=== PATIENT | male | born 1965 | race Caucasian/White ===

== ENCOUNTER 2016-12-24 16:58 | Observation (INO) | payer SELFPAY ==
[~2016-12-24] VITALS: Ht 180.3 cm; Wt 90.8 kg
[~2016-12-24 16:58] MED LIST: AMBIEN 10MG10 MG PO; DESYREL 100MG100 MG PO; FENTANYL 50MCG TD; FLEXERIL 1010 MG/TAB PO; NORCO 325 MG-7.1 TAB PO; ZOLOFT 100MG100 MG PO
[2016-12-24] MEDS ORDERED: PROZAC 20MG20 MG PO (17:09)
[2016-12-24] MEDS ORDERED: [UNRECOGNIZED DRUG - CODE] PO (17:10)
[2016-12-24] MEDS ORDERED: ATARAX 25MG25 MG/TAB PO (17:10)
[2016-12-24 17:52] LABS: BASO # 0.1 (0.0-0.2); BASO % 0.8 % (0.0-2.0); EOS # 0.1 (0.0-0.7); EOS % 0.9 % (0-4.0); GRAN # 6.4 (1.4-6.5); GRAN % 64.9 % (42.2-75.2); HEMATOCRIT 44.5 % (42.0-52.0); HEMOGLOBIN 16.2 g/dl (13.5-18.0); LYMPH # 2.5 (1.2-3.4); LYMPH % 24.7 % (20.0-51.0); MEAN CELL VOLUME 92 fl (80.0-100.0); MEAN CORPUSCULAR HEMOGLOBIN 34 pg (27.0-31.0); MEAN CORPUSCULAR HGB CONC 36 g/dl (33.0-37.0); MEAN PLATELET VOLUME 9.1 fl (7.4-10.4); MONO # 0.8 (0.1-0.6); PLATELET COUNT 292 K/mm3 (130-400); RED BLOOD COUNT 4.82 M/mm3 (4.20-5.60); REDCELL DISTRIBUTION WIDTH-CV 13.9 % (11.5-14.5); WHITE BLOOD COUNT 9.9 K/mm3 (4.8-10.8)
[2016-12-24 18:03] LABS: ADJUSTED CALCIUM 8.8 mg/dL (8.4-10.2); ALANINE AMINOTRANSFERASE 27 U/L (21-72); ALBUMIN 4.3 gm/dL (3.5-5.0); ALKALINE PHOSPHATASE 71 U/L (50-136); ANION GAP 12 mmol/L (7-16); BILIRUBIN,TOTAL 0.8 mg/dL (0.0-1.0); BLOOD UREA NITROGEN 8 mg/dL (9-20); CARBON DIOXIDE 22 mmol/L (22-30); CHLORIDE 106 mmol/L (98-107); CREATININE, serum 0.83 mg/dL (0.66-1.25); GLUCOSE 91 mg/dL (74-106); POTASSIUM 3.5 mmol/L (3.4-5.0); SODIUM 141 mmol/L (137-145); TOTAL PROTEIN 7.3 gm/dL (6.4-8.2)
[2016-12-24 18:10] LABS: ACETAMINOPHEN < 10 ug/mL (10-30); SALICYLATE < 1.0 mg/dL
[2016-12-24 18:16] LABS: TROPONIN-I < 0.012 ng/mL (0.000-0.034)
[2016-12-24 18:24] LABS: PH 5 (5-8); SQUAMOUS EPITHELIAL None Seen /hpf; URINE APPEARANCE Clear; URINE BACTERIA None Seen /hpf; URINE BILIRUBIN Negative (NEGATIVE); URINE BLOOD Negative (NEGATIVE); URINE COLOR Yellow; URINE GLUCOSE Negative (NEGATIVE); URINE KETONE Negative (NEGATIVE); URINE RBC 0-2 /hpf; URINE UROBILINOGEN Negative (NEGATIVE); URINE WBC 0-2 /hpf
[2016-12-24 18:30] LABS: AMPHETAMINE URINE NEGATIVE; BARBITURATES URINE NEGATIVE; BENZODIAZEPINES URINE POSITIVE; BUPRENORPHINE URINE NEGATIVE; METHADONE URINE NEGATIVE; OPIATES URINE NEGATIVE; OXYCODONE URINE NEGATIVE; PHENCYCLIDINE URINE NEGATIVE; PROPOXYPHENE URINE NEGATIVE; THC CANNABINOIDS URINE NEGATIVE
[2016-12-25] VITALS (726 sets, daily range): BP systolic 113–152; BP diastolic 78–107; PULSE 82–98; TEMP 98; O2SAT 87–100
== END 2016-12-25 15:15 ==
LOC: COL.ER 16:58 → ICU 12-25 01:07
PROVIDERS: Nurse Practitioner
DX: F33.8 Other recurrent depressive disorders (principal); F51.04 Psychophysiologic insomnia; I10 Essential (primary) hypertension; I25.10 Atherosclerotic heart disease of native coronary artery without angina pectoris; Z95.818 Presence of other cardiac implants and grafts
CPT/HCPCS: G0378

== ENCOUNTER 2020-03-30 10:52 | Day surgery (SDC) | payer BC ==
[~2020-03-30] VITALS: Ht 177.8 cm; Wt 94.2 kg
[~2020-03-30 10:52] MED LIST changes: +ATARAX 25MG25 MG/TAB PO; +PROZAC 20MG20 MG PO; +[UNRECOGNIZED DRUG - CODE] PO
[2020-03-30] MEDS ORDERED: MICROZIDE12.5 MG PO (11:27)
[2020-03-30] MEDS ORDERED: PERCOCET 325 MG1 TAB PO ×2 (11:27→14:29)
[2020-03-30] MEDS ORDERED: SONATA 10MG10 MG PO (11:27)
[2020-03-30 11:28] VITALS: BP 157/103; PULSE 67; TEMP 97.5
[2020-03-30] MEDS ORDERED: MOTRIN 600600 MG/TAB PO (14:30)
[2020-03-30 15:30] VITALS: BP 165/90; PULSE 88; TEMP 97.8
--- NOTE | 2020-03-30 15:30 | NUR ---
Patient arrives to [facility] [place] [facility] [place], accompanied by SAILMAKER Lindsay. He is sitting up in bed, alert and oriented. He states his pain is controlled, rating it a 3/10. He has 3 surgical sites on his abdomen that are clean, dry, glue intact. PIV is to TKO. He denies nausea. He has ice chips. Monitoring is applied and VSS on room air. He has HTN and his BP is within parameters from pre-op BP. He states he needs to void. He ambulates to the restroom with staff assist. He voids a large amount of clear/yellow urine and returns to room with steady gait.
[2020-03-30 15:45] VITALS: BP 155/83; PULSE 87
--- NOTE | 2020-03-30 15:45 | NUR ---
Patient is resting comfortably in room. He is offered and receives sprite and crackers.
[2020-03-30 16:00] VITALS: BP 157/86; PULSE 89
--- NOTE | 2020-03-30 16:00 | NUR ---
Patient is resting comfortably. Tolerating PO well. Denies pain or nausea.
--- NOTE | 2020-03-30 16:15 | NUR ---
Patient has met discharge criteria and states he would like to go home. He calls his daughter and she is available to head towards the hospital for transportation. PIV is removed with catheter intact and hemostasis achieved. Discharge instructions are discussed with the patient. He verbalizes understanding and denies questions. He is aware of his prescriptions to leaf size picker at [facility] (percocet and motrin). He is given an appointment reminder for his follow-up appointment. He ambulates to the restroom again with steady gait, returns to room, and changes to his clothing independently.
--- NOTE | 2020-03-30 17:11 | NUR ---
Patient's daughter has arrived to pick him up. He is escorted to the exit via wheelchair and discharged to home at 1711.
== END 2020-03-30 17:11 | disposition home or self-care (01) ==
LOC: SDCO 10:52
DX: K40.90 Unilateral inguinal hernia, without obstruction or gangrene, not specified as recurrent (principal); D17.6 Benign lipomatous neoplasm of spermatic cord; I10 Essential (primary) hypertension; Z20.822 Contact with and (suspected) exposure to COVID-19; Z79.899 Other long term (current) drug therapy
CPT/HCPCS: C1781; J0360; J0690; J1100; J1170; J1885; J2405; J2550; J2704; J3010; J7120

== ENCOUNTER → 2020-06-12 | Outpatient (CLI) | payer SELFPAY ==
[~2020-06-12] MED LIST changes: +MICROZIDE12.5 MG PO; +MOTRIN 600600 MG/TAB PO; +PERCOCET 325 MG1 TAB PO; +SONATA 10MG10 MG PO
== END ==
LOC: MHCPAIN 08:51
DX: M47.817 Spondylosis without myelopathy or radiculopathy, lumbosacral region (principal); M53.3 Sacrococcygeal disorders, not elsewhere classified; G89.29 Other chronic pain; F11.20 Opioid dependence, uncomplicated
CPT/HCPCS: G0463

== ENCOUNTER → 2020-07-24 | Outpatient (CLI) | payer OTHER | LOC: MHCPAIN 08:31 | DX: M47.817 Spondylosis without myelopathy or radiculopathy, lumbosacral region (principal); M53.3 Sacrococcygeal disorders, not elsewhere classified; G89.29 Other chronic pain | CPT/HCPCS: G0463 ==

== ENCOUNTER → 2020-08-22 | Outpatient (CLI) | payer OTHER | LOC: MHCPAIN 07:46 | DX: M47.817 Spondylosis without myelopathy or radiculopathy, lumbosacral region (principal); M53.3 Sacrococcygeal disorders, not elsewhere classified; G89.29 Other chronic pain | CPT/HCPCS: G0463 ==

== ENCOUNTER → 2020-09-25 | Outpatient (CLI) | payer OTHER | LOC: MHCPAIN 07:47 | DX: M47.817 Spondylosis without myelopathy or radiculopathy, lumbosacral region (principal); M54.5 Low back pain; M53.3 Sacrococcygeal disorders, not elsewhere classified | CPT/HCPCS: G0463 ==

== ENCOUNTER → 2020-10-30 | Outpatient (CLI) | payer OTHER | LOC: MHCPAIN 07:46 | DX: M47.817 Spondylosis without myelopathy or radiculopathy, lumbosacral region (principal); M54.5 Low back pain; M53.3 Sacrococcygeal disorders, not elsewhere classified | CPT/HCPCS: G0463 ==

== ENCOUNTER → 2020-11-27 | Outpatient (CLI) | payer OTHER | LOC: MHCPAIN 07:43 | DX: M47.817 Spondylosis without myelopathy or radiculopathy, lumbosacral region (principal); M54.5 Low back pain; M53.3 Sacrococcygeal disorders, not elsewhere classified | CPT/HCPCS: G0463 ==

== ENCOUNTER → 2021-01-31 | Outpatient (CLI) | payer OTHER | LOC: MHCPAIN 10:51 | DX: M47.817 Spondylosis without myelopathy or radiculopathy, lumbosacral region (principal); M53.3 Sacrococcygeal disorders, not elsewhere classified; G89.29 Other chronic pain | CPT/HCPCS: G0463 ==

== ENCOUNTER → 2021-03-27 | Outpatient (CLI) | payer OTHER | LOC: MHCPAIN 09:50 | DX: M54.50 Low back pain, unspecified (principal); M53.3 Sacrococcygeal disorders, not elsewhere classified; M47.896 Other spondylosis, lumbar region; G89.29 Other chronic pain | CPT/HCPCS: G0463 ==

== ENCOUNTER → 2021-05-21 | Outpatient (CLI) | payer OTHER | LOC: MHCPAIN 14:06 | DX: M54.50 Low back pain, unspecified (principal); M47.817 Spondylosis without myelopathy or radiculopathy, lumbosacral region; M53.3 Sacrococcygeal disorders, not elsewhere classified | CPT/HCPCS: G0463 ==

== ENCOUNTER → 2021-07-22 | Outpatient (CLI) | payer OTHER | LOC: MHCPAIN 09:07 | DX: M48.062 Spinal stenosis, lumbar region with neurogenic claudication (principal); M47.896 Other spondylosis, lumbar region; M53.3 Sacrococcygeal disorders, not elsewhere classified | CPT/HCPCS: G0463 ==

== ENCOUNTER → 2021-10-02 | Outpatient (CLI) | payer SELFPAY | LOC: MHCPAIN 12:29 | DX: M47.896 Other spondylosis, lumbar region (principal); M53.3 Sacrococcygeal disorders, not elsewhere classified; M54.50 Low back pain, unspecified | CPT/HCPCS: G0463 ==